=== PATIENT | male | born 1955 | race Caucasian/White ===

== ENCOUNTER → 2024-10-26 16:12 | Outpatient (REF) | payer OTHER, SELFPAY | LOC: HWRAD 16:12 | PROVIDERS: ATTENDING PHYSICIAN Internal Medicine | DX: M54.12 Radiculopathy, cervical region (principal) | CPT/HCPCS: 72050 ==

== ENCOUNTER → 2025-06-05 08:43 | Outpatient (REF) | payer OTHER, SELFPAY | LOC: HWRAD 08:43 | PROVIDERS: ATTENDING PHYSICIAN Internal Medicine | DX: R41.82 Altered mental status, unspecified (principal) | CPT/HCPCS: 70450 ==

== ENCOUNTER → 2025-08-01 13:59 | Outpatient (REF) | payer OTHER, SELFPAY | LOC: PAVMRI 13:59 | PROVIDERS: ATTENDING PHYSICIAN Internal Medicine | DX: R41.82 Altered mental status, unspecified (principal) | CPT/HCPCS: 70553; A9575 ==